=== PATIENT | female | born 1985 | race African-American/Black ===

== ENCOUNTER → 2024-12-19 | Emergency (ER) | payer BC ==
[~2024-12-19] VITALS: Ht 175.3 cm; Wt 104.3 kg
[~2024-12-19] MED LIST: CLON0.1T PO; hydrALAZINE HCL 20 MG/1 ML VIAL ONE
[2024-12-19 20:02] LABS: BASOPHILS # (AUTO) 0.1 K/UL (0.0-0.2); BASOPHILS % (AUTO) 0.6 % (0.0-2.0); EOSINOPHILS # (AUTO) 0.1 K/uL (0.0-0.7); EOSINOPHILS % (AUTO) 1.4 % (0.0-7.0); HEMATOCRIT 38.2 % (31.2-41.9); HEMOGLOBIN 12.3 g/dL (10.9-14.3); LYMPHOCYTES # (AUTO) 2.9 K/uL (0.8-4.8); LYMPHOCYTES % (AUTO) 28.8 % (20.5-51.5); MEAN CORPUSCULAR HEMOGLOBIN 28.6 uug (24.7-32.8); MEAN CORPUSCULAR HGB CONC 32 g/dL (32.3-35.6); MEAN CORPUSCULAR VOLUME 88.8 fL (75.5-95.3); MONOCYTES # (AUTO) 0.6 K/uL (0.1-1.30); MONOCYTES % (AUTO) 5.9 % (0.0-11.0); NEUTROPHILS # (AUTO) 6.3 K/uL (1.8-8.9); NEUTROPHILS % (AUTO) 63.3 % (38.5-71.5); PLATELET COUNT (AUTO) 363 K/uL (179-408); WHITE BLOOD COUNT (AUTO) 9.9 K/uL (3.8-11.8)
[2024-12-19 20:03] LABS: DIFFERENTIAL COMMENT 1
[2024-12-19] MEDS: hydrALAZINE HCL 20 MG/1 ML VIAL IV ONE ×2 (20:06→21:10)
[2024-12-19 20:09] LABS: *BILIRUBIN,URIN NEGATIVE (NEGATIVE); *BLOOD, URINE NEGATIVE (NEGATIVE); *CLARITY,URINE CLEAR (CLEAR); *COLOR,URINE YELLOW (YELLOW); *KETONES,URINE TRACE (NEGATIVE); *PROTEIN,URINE NEGATIVE (NEGATIVE); LEUKOCYTE ESTERASE ,URINE NEGATIVE (NEGATIVE); NITRITE, URINE NEGATIVE (NEGATIVE); PH,URINE 6.5 (5.0-8.0); UGLUCOSE NEGATIVE (NEGATIVE)
[2024-12-19 20:10] LABS: CALCIUM 8.5 mg/dL (8.5-10.1); CARBON DIOXIDE 29 mmol/L (21-32); CHLORIDE 104 mmol/L (98-107); CREATININE 0.9 mg/dL (0.6-1.3); GLUCOSE 109 mg/dL (74-106); POTASSIUM 3.2 mmol/L (3.5-5.1); SODIUM SERUM 142 mmol/L (136-145); UREA NITROGEN, BLOOD 12 mg/dL (7-18)
[2024-12-19 20:11] LABS: ETHANOL < 3 MG/DL (0-10)
[2024-12-19 20:16] LABS: ALANINE AMINOTRANSFERASE 25 U/L (14-59); ALBUMIN 3.3 g/dL (3.4-5.0); ALKALINE PHOSPHATASE 77 U/L (50-136); ASPARTATE AMINOTRANSFERASE 18 U/L (15-37); BILIRUBIN,DIRECT 0.2 mg/dL (0.0-0.2); BILIRUBIN,TOTAL 0.6 mg/dL (0.2-1.0); TOTAL PROTEIN, SERUM 6.7 g/dL (6.4-8.2)
[2024-12-19 20:24] LABS: BACTERIA,URINE MODERATE /HPF (NONE SEEN); RBC,URINE 0-3 /HPF (0-3); SQUAMOUS EPITHELIAL CELL,UR FEW /HPF (NONE SEEN)
[2024-12-19 20:25] LABS: *AMPHETAMINE, URINE POSITIVE (NEGATIVE); *BARBITURATE, URINE NEGATIVE (NEGATIVE); *BENZODIAZEPINE, URINE NEGATIVE (NEGATIVE); *CANNABINOID, URINE POSITIVE (NEGATIVE); *COCCAINE, URINE NEGATIVE (NEGATIVE); *OPIATE, URINE NEGATIVE (NEGATIVE); *PHENCYCLIDINE SCREEN,URINE POSITIVE (NEGATIVE); FENTANYL, URINE NEGATIVE (NEGATIVE)
[2024-12-19] MEDS: LABETALOL HCL 100 MG/20 ML VIAL IV ONE (21:45)
[2024-12-19 22:30] LABS: *URINE HCG, QUAL NEGATIVE (NEGATIVE)
[2024-12-19 23:07] VITALS: BP 149/110; O2SAT 99
== END | disposition home or self-care (01) ==
LOC: ER 19:27
DX: I11.9 Hypertensive heart disease without heart failure (principal); F17.210 Nicotine dependence, cigarettes, uncomplicated; F19.10 Other psychoactive substance abuse, uncomplicated; Z91.148 Patient's other noncompliance with medication regimen for other reason
CPT/HCPCS: 80076; 80048; 81001; 84703; 85025; 87086; 36415; 93005; 99285; 96374; 96375; 96376; 80320; 80307; 99406; J0360 ×2; A4606; A4663; G0480

== ENCOUNTER 2025-01-11 14:05 | Emergency (ER) | payer SELFPAY ==
[~2025-01-11] VITALS: Ht 175.3 cm; Wt 99.8 kg
[~2025-01-11 14:05] MED LIST changes: -hydrALAZINE HCL 20 MG/1 ML VIAL ONE
[2025-01-11] MEDS ORDERED: AMLO-212 PO (14:49)
[2025-01-11] MEDS ORDERED: CLON0.1T PO (14:49)
[2025-01-11] MEDS ORDERED: CLONIDINE HCL 0.1 MG TABLET ONE (14:52)
[2025-01-11] MEDS ORDERED: AMLODIPINE 5 MG TABLET ONE (14:52)
[2025-01-11] MEDS: AMLODIPINE 5 MG TABLET PO ONE (14:55)
[2025-01-11] MEDS: CLONIDINE HCL 0.1 MG TABLET PO ONE (14:55)
[2025-01-11 15:20] VITALS: BP 183/104; TEMP 98.5; O2SAT 95
== END 2025-01-11 15:20 | disposition home or self-care (01) ==
LOC: ER 14:05
DX: I10 Essential (primary) hypertension (principal); F17.210 Nicotine dependence, cigarettes, uncomplicated; R51.9 Headache, unspecified; F15.10 Other stimulant abuse, uncomplicated
CPT/HCPCS: A4606; A4663